=== PATIENT | male | born 1960 | race Caucasian/White ===

== ENCOUNTER 2021-12-31 23:33 | Emergency (ER) | payer BC ==
[2021-12-31 23:41] VITALS: BP 112/68; PULSE 84; TEMP 98.2; BMI 37.7
== END 2022-01-01 02:10 | disposition home or self-care (01) ==
LOC: JER 23:33
DX: R05.1 Acute cough (principal); R09.81 Nasal congestion; J09.X2 Influenza due to identified novel influenza A virus with other respiratory manifestations
CPT/HCPCS: 0241U-QW; 71046-TC-FY; 93005; 93010; 99285-25